=== PATIENT | female | born 1985 | race Caucasian/White ===

== ENCOUNTER 2021-08-26 17:24 | Inpatient (IN) | payer BC, SELFPAY ==
--- NOTE | ~2021-08-26 | CT_ITS ---
EXAMINATION: CT ABDOMEN AND PELVIS WITH CONTRAST CLINICAL INFORMATION: 35-year-old female with left lower quadrant pain COMPARISON: None TECHNIQUE: Multidetector volumetric images were obtained from the superior aspect of the liver through the pubic symphysis following administration 85 mL of Omnipaque 350 intravenous contrast. Sagittal and coronal reformatted images were obtained on the technologist's workstation. This CT examination was performed using dose optimization techniques as appropriate, variously including the following: *Automated exposure control *Adjustment of mA and/or kV according to patient size (this includes techniques or standardized protocols for targeted exams where dose is matched to indication/reason for exam; i.e. extremities or head) *Use of iterative reconstruction technique DLP: 1038 mGy-cm FINDINGS: Visualized lung bases are well aerated. The liver demonstrates normal size, contour and attenuation. The gallbladder is normal in appearance. The pancreas, spleen and adrenal glands are unremarkable. Striated nephrogram of the left kidney with mild left-sided perinephric stranding. There is mild fullness of the left-sided collecting system without overt hydronephrosis. No renal calculi appreciated on today's contrast enhanced imaging. The right kidney is grossly unremarkable without hydronephrosis. Normal caliber loops of small and large bowel. Mild colonic stool burden within the mid to distal colon. Fluid is noted within the cecum and ascending colon. Normal caliber abdominal aorta. No gross retroperitoneal lymphadenopathy. The bladder is decompressed and therefore not accurately evaluated. Unremarkable CT appearance of the uterus. 1.8 cm dominant follicle versus cyst of the left adnexa. Trace free pelvic fluid is likely physiologic. No gross inguinal lymphadenopathy bilaterally. No acute osseous abnormality. CT/CT abdomen pelvis w con IMPRESSION: CT findings most suggestive of pyelonephritis of the left kidney. Correlation with urinary analysis recommended. Fleischner guidelines were followed.
[2021-08-26 17:59] VITALS: BP 121/87; PULSE 117; RESP 18; TEMP 36.6; O2SAT 98; BMI 43.9
--- NOTE | 2021-08-26 18:04 | ED.ABDPAIN ---
HPI - Abdominal Pain General Chief Complaint: Abdominal Pain <ADAM Zuluaga - Last Filed: 08/27/21 11:48> Stated Complaint: Abdominal pain <ADAM Zuluaga - Last Filed: 08/27/21 11:48> Time Seen by Provider: 08/26/21 17:59 <ADAM Zuluaga - Last Filed: 08/27/21 11:48> Related Data Home Medications: Home Medications Medication Instructions Recorded Confirmed clonazepam 1 mg tablet 1 tab PO DAILY MDD anxiety 08/26/21 08/26/21 dextroamphetamine-amphetamine 10 1 tab PO BID 08/26/21 08/26/21 mg tablet dextroamphetamine-amphetamine ER 1 cap PO QAM 08/26/21 08/26/21 20 mg 24hr capsule,extend release hydroxychloroquine 200 mg tablet 2 tab PO DAILY 08/26/21 08/26/21 lisinopril 10 mg tablet 1 tab PO DAILY 08/26/21 08/26/21 medroxyprogesterone 150 mg/mL 1 ml IM [id number] 08/26/21 08/26/21 intramuscular suspension nabumetone 500 mg tablet 1 tab PO BID 08/26/21 08/26/21 omeprazole 20 mg capsule,delayed 1 cap PO DAILY 08/26/21 08/26/21 release paroxetine HCl 30 mg tablet 45 mg PO DAILY 08/26/21 08/26/21 <ADAM Zuluaga - Last Filed: 08/27/21 11:48> Allergies/Adverse Reactions: Allergies Allergy/AdvReac Type Severity Reaction Status Date / Time acetaminophen [From Percocet] Allergy Itching Verified 08/27/21 08:13 oxycodone Allergy Itching Verified 08/27/21 08:13 <ADAM Zuluaga - Last Filed: 08/27/21 11:48> Physical Exam Vital Signs: Vital Signs: Last Vital Signs Temp 97.8 F 08/27/21 11:12 Pulse 95 08/27/21 11:12 Resp 20 08/27/21 11:12 BP 113/69 08/27/21 11:12 Pulse Ox 99 08/27/21 11:12 BMI result Body Mass Index 43.9 <ADAM Zuluaga - Last Filed: 08/27/21 11:48> Vital Signs: Last Vital Signs Temp 97.8 F 08/27/21 11:12 Pulse 95 08/27/21 11:12 Resp 20 08/27/21 11:12 BP 113/69 08/27/21 11:12 Pulse Ox 99 08/27/21 11:12 BMI result Body Mass Index 43.9 <Rosio Chandra MD - Last Filed: 08/27/21 02:14> Course Course Course Narrative: Patient presents to the ED for left lower quadrant abdominal pain with nausea, chills, and sweating. patient states no fever. Patient states vaccinated. Patient is on depo shot. Patient is A0x3. Left lower quadrant tenderness. Negative for any gaurding,rigidity, or peritoneal signs of abdomen. Due to patient being tachycardic, diaphoretic, and tendernss of LLq, Charge nurse Tommy was informed of patient's condition and states he will bring patient to the Main ED the next availabe bed. Rapid medical screening done. <ADAM Zuluaga - Last Filed: 08/27/21 11:48> MDM - Abdominal Pain Lab Data Result diagrams: : 08/27/21 06:24 08/27/21 06:24 <ADAM Zuluaga - Last Filed: 08/27/21 11:48> Labs: Lab Results 08/26/21 08/26/21 08/26/21 Range/Units 18:03 18:32 18:32 WBC 20.3 H (4.8-10.8) X10*3/uL RBC 4.58 (4.20-5.50) X10*6/uL Hgb 13.2 (12.0-16.0) g/dl Hct 39.4 (37.0-47.0) % MCV 86.0 (80.0-98.0) fL MCH 28.8 (27.0-33.0) pg MCHC 33.5 (31.0-35.0) g/dl RDW 13.4 (11.0-16.0) % Plt Count 314 (160-400) X10*3/uL MPV 8.9 L (9.4-12.3) fL Immature Gran % (Auto) 1.4 H (0.0-0.4) % Neut % (Auto) 81.0 H (45-73) % Lymph % (Auto) 7.7 L (20-40) % [place] % (Auto) 9.5 (2-11) % Eos % (Auto) 0.1 (0-4) % Baso % (Auto) 0.3 (0-2) % Lymph # (Auto) 1.6 (1.2-4.9) X10*3/uL [place] # (Auto) 1.9 H (0.1-1.2) X10*3/uL Eos # (Auto) 0.0 (0.0-0.4) X10*3/uL Baso # (Auto) 0.1 (0.0-0.2) X10*3/uL Abs Immat Gran (auto) 0.28 H (0.00-0.03) X10*3/uL Absolute Neuts (auto) 16.4 H (2.0-8.3) x10*3/uL Absolute Nucleated RBC 0.000 (0.0-0.012) X10*3/uL Nucleated RBC % (auto) 0.0 (0.0-0.2) /100WBC Smear Tech's Comments VERIFIED PT (9.9-13.0) SEC INR (0.9-1.1) APTT (24.1-38.0) SEC Sodium 133 L (135-145) mmol/L Potassium 4.1 (3.3-5.1) mmol/L Chloride 96 (96-108) mmol/L Carbon Dioxide 26 (22-29) mmol/L Anion Gap 15 (12-20) BUN 13 (9-16) mg/dL Creatinine 0.81 (0.5-1.4) mg/dL Estim Creat Clear Calc 114.8 Estimated GFR > 60 POC Glucose 111 (60-115) mg/dL Random Glucose 108 (60-115) mg/dL Calcium 9.9 (8.4-10.2) mg/dL Total Bilirubin 0.5 (0.0-1.0) mg/dL Direct Bilirubin 0.3 (0.0-0.5) mg/dL AST 25 (5-31) U/L ALT 31 (0-31) U/L Alkaline Phosphatase 83 (39-117) U/L Total Protein 7.5 (6.5-8.0) g/dL Albumin 4.4 (3.5-5.0) g/dL Lipase 12 (8-78) U/L Beta HCG, Quant < 2 mIU/mL Urine Color Urine Appearance Urine pH (5.0-8.0) Ur Specific [place] (1.005-1.025) Urine Protein (NEG-TRACE) MG/DL Urine Glucose (UA) (NEG) MG/DL Urine Ketones (NEG) MG/DL Urine Blood (NEG) Urine Nitrite (NEG) Ur Leukocyte Esterase (NEG) Urine RBC (0) /HPF Urine WBC (0-4) /HPF Ur Squamous Epith Cells /LPF Urine Bacteria /LPF Influenza Type A (PCR) (Negative) Influenza Type B (PCR) (Negative) RSV RNA Qual (PCR) (Negative) SARS-CoV-2 RNA (RT-PCR) (Negative) 08/26/21 08/26/21 08/26/21 Range/Units 18:32 18:32 19:55 WBC (4.8-10.8) X10*3/uL RBC (4.20-5.50) X10*6/uL Hgb (12.0-16.0) g/dl Hct (37.0-47.0) % MCV (80.0-98.0) fL MCH (27.0-33.0) pg MCHC (31.0-35.0) g/dl RDW (11.0-16.0) % Plt Count (160-400) X10*3/uL MPV (9.4-12.3) fL Immature Gran % (Auto) (0.0-0.4) % Neut % (Auto) (45-73) % Lymph % (Auto) (20-40) % [place] % (Auto) (2-11) % Eos % (Auto) (0-4) % Baso % (Auto) (0-2) % Lymph # (Auto) (1.2-4.9) X10*3/uL [place] # (Auto) (0.1-1.2) X10*3/uL Eos # (Auto) (0.0-0.4) X10*3/uL Baso # (Auto) (0.0-0.2) X10*3/uL Abs Immat Gran (auto) (0.00-0.03) X10*3/uL Absolute Neuts (auto) (2.0-8.3) x10*3/uL Absolute Nucleated RBC (0.0-0.012) X10*3/uL Nucleated RBC % (auto) (0.0-0.2) /100WBC Smear Tech's Comments PT 13.7 H (9.9-13.0) SEC INR 1.2 H (0.9-1.1) APTT 35.1 (24.1-38.0) SEC Sodium (135-145) mmol/L Potassium (3.3-5.1) mmol/L Chloride (96-108) mmol/L Carbon Dioxide (22-29) mmol/L Anion Gap (12-20) BUN (9-16) mg/dL Creatinine (0.5-1.4) mg/dL Estim Creat Clear Calc Estimated GFR POC Glucose (60-115) mg/dL Random Glucose (60-115) mg/dL Calcium (8.4-10.2) mg/dL Total Bilirubin (0.0-1.0) mg/dL Direct Bilirubin (0.0-0.5) mg/dL AST (5-31) U/L ALT (0-31) U/L Alkaline Phosphatase (39-117) U/L Total Protein (6.5-8.0) g/dL Albumin (3.5-5.0) g/dL Lipase (8-78) U/L Beta HCG, Quant mIU/mL Urine Color YELLOW Urine Appearance HAZY Urine pH 5.5 (5.0-8.0) Ur Specific [place] >= 1.030 H (1.005-1.025) Urine Protein 2+ H (NEG-TRACE) MG/DL Urine Glucose (UA) NEG (NEG) MG/DL Urine Ketones 15 (NEG) MG/DL Urine Blood 1+ H (NEG) Urine Nitrite NEG (NEG) Ur Leukocyte Esterase 3+ H (NEG) Urine RBC 1-4 (0) /HPF Urine WBC 15-29 H (0-4) /HPF Ur Squamous Epith Cells 1+ /LPF Urine Bacteria 1+ /LPF Influenza Type A (PCR) NEGATIVE (Negative) Influenza Type B (PCR) NEGATIVE (Negative) RSV RNA Qual (PCR) NEGATIVE (Negative) SARS-CoV-2 RNA (RT-PCR) NEGATIVE (Negative) <ADAM Zuluaga - Last Filed: 08/27/21 11:48> Lab Results 08/26/21 08/26/21 08/26/21 Range/Units 18:03 18:32 18:32 WBC 20.3 H (4.8-10.8) X10*3/uL RBC 4.58 (4.20-5.50) X10*6/uL Hgb 13.2 (12.0-16.0) g/dl Hct 39.4 (37.0-47.0) % MCV 86.0 (80.0-98.0) fL MCH 28.8 (27.0-33.0) pg MCHC 33.5 (31.0-35.0) g/dl RDW 13.4 (11.0-16.0) % Plt Count 314 (160-400) X10*3/uL MPV 8.9 L (9.4-12.3) fL Immature Gran % (Auto) 1.4 H (0.0-0.4) % Neut % (Auto) 81.0 H (45-73) % Lymph % (Auto) 7.7 L (20-40) % [place] % (Auto) 9.5 (2-11) % Eos % (Auto) 0.1 (0-4) % Baso % (Auto) 0.3 (0-2) % Lymph # (Auto) 1.6 (1.2-4.9) X10*3/uL [place] # (Auto) 1.9 H (0.1-1.2) X10*3/uL Eos # (Auto) 0.0 (0.0-0.4) X10*3/uL Baso # (Auto) 0.1 (0.0-0.2) X10*3/uL Abs Immat Gran (auto) 0.28 H (0.00-0.03) X10*3/uL Absolute Neuts (auto) 16.4 H (2.0-8.3) x10*3/uL Absolute Nucleated RBC 0.000 (0.0-0.012) X10*3/uL Nucleated RBC % (auto) 0.0 (0.0-0.2) /100WBC Smear Tech's Comments VERIFIED PT (9.9-13.0) SEC INR (0.9-1.1) APTT (24.1-38.0) SEC Sodium 133 L (135-145) mmol/L Potassium 4.1 (3.3-5.1) mmol/L Chloride 96 (96-108) mmol/L Carbon Dioxide 26 (22-29) mmol/L Anion Gap 15 (12-20) BUN 13 (9-16) mg/dL Creatinine 0.81 (0.5-1.4) mg/dL Estim Creat Clear Calc 114.8 Estimated GFR > 60 POC Glucose 111 (60-115) mg/dL Random Glucose 108 (60-115) mg/dL Calcium 9.9 (8.4-10.2) mg/dL Total Bilirubin 0.5 (0.0-1.0) mg/dL Direct Bilirubin 0.3 (0.0-0.5) mg/dL AST 25 (5-31) U/L ALT 31 (0-31) U/L Alkaline Phosphatase 83 (39-117) U/L Total Protein 7.5 (6.5-8.0) g/dL Albumin 4.4 (3.5-5.0) g/dL Lipase 12 (8-78) U/L Beta HCG, Quant < 2 mIU/mL Urine Color Urine Appearance Urine pH (5.0-8.0) Ur Specific [place] (1.005-1.025) Urine Protein (NEG-TRACE) MG/DL Urine Glucose (UA) (NEG) MG/DL Urine Ketones (NEG) MG/DL Urine Blood (NEG) Urine Nitrite (NEG) Ur Leukocyte Esterase (NEG) Urine RBC (0) /HPF Urine WBC (0-4) /HPF Ur Squamous Epith Cells /LPF Urine Bacteria /LPF Influenza Type A (PCR) (Negative) Influenza Type B (PCR) (Negative) RSV RNA Qual (PCR) (Negative) SARS-CoV-2 RNA (RT-PCR) (Negative) 08/26/21 08/26/21 08/26/21 Range/Units 18:32 18:32 19:55 WBC (4.8-10.8) X10*3/uL RBC (4.20-5.50) X10*6/uL Hgb (12.0-16.0) g/dl Hct (37.0-47.0) % MCV (80.0-98.0) fL MCH (27.0-33.0) pg MCHC (31.0-35.0) g/dl RDW (11.0-16.0) % Plt Count (160-400) X10*3/uL MPV (9.4-12.3) fL Immature Gran % (Auto) (0.0-0.4) % Neut % (Auto) (45-73) % Lymph % (Auto) (20-40) % [place] % (Auto) (2-11) % Eos % (Auto) (0-4) % Baso % (Auto) (0-2) % Lymph # (Auto) (1.2-4.9) X10*3/uL [place] # (Auto) (0.1-1.2) X10*3/uL Eos # (Auto) (0.0-0.4) X10*3/uL Baso # (Auto) (0.0-0.2) X10*3/uL Abs Immat Gran (auto) (0.00-0.03) X10*3/uL Absolute Neuts (auto) (2.0-8.3) x10*3/uL Absolute Nucleated RBC (0.0-0.012) X10*3/uL Nucleated RBC % (auto) (0.0-0.2) /100WBC Smear Tech's Comments PT 13.7 H (9.9-13.0) SEC INR 1.2 H (0.9-1.1) APTT 35.1 (24.1-38.0) SEC Sodium (135-145) mmol/L Potassium (3.3-5.1) mmol/L Chloride (96-108) mmol/L Carbon Dioxide (22-29) mmol/L Anion Gap (12-20) BUN (9-16) mg/dL Creatinine (0.5-1.4) mg/dL Estim Creat Clear Calc Estimated GFR POC Glucose (60-115) mg/dL Random Glucose (60-115) mg/dL Calcium (8.4-10.2) mg/dL Total Bilirubin (0.0-1.0) mg/dL Direct Bilirubin (0.0-0.5) mg/dL AST (5-31) U/L ALT (0-31) U/L Alkaline Phosphatase (39-117) U/L Total Protein (6.5-8.0) g/dL Albumin (3.5-5.0) g/dL Lipase (8-78) U/L Beta HCG, Quant mIU/mL Urine Color YELLOW Urine Appearance HAZY Urine pH 5.5 (5.0-8.0) Ur Specific [place] >= 1.030 H (1.005-1.025) Urine Protein 2+ H (NEG-TRACE) MG/DL Urine Glucose (UA) NEG (NEG) MG/DL Urine Ketones 15 (NEG) MG/DL Urine Blood 1+ H (NEG) Urine Nitrite NEG (NEG) Ur Leukocyte Esterase 3+ H (NEG) Urine RBC 1-4 (0) /HPF Urine WBC 15-29 H (0-4) /HPF Ur Squamous Epith Cells 1+ /LPF Urine Bacteria 1+ /LPF Influenza Type A (PCR) NEGATIVE (Negative) Influenza Type B (PCR) NEGATIVE (Negative) RSV RNA Qual (PCR) NEGATIVE (Negative) SARS-CoV-2 RNA (RT-PCR) NEGATIVE (Negative) <Rosio Chandra MD - Last Filed: 08/27/21 02:14> Discharge Plan Discharge Clinical Impression: Pyelonephritis <ADAM Zuluaga - Last Filed: 08/27/21 11:48> Patient Disposition: Admitted As Inpatient <ADAM Zuluaga - Last Filed: 08/27/21 11:48> Interventions: Admission Worksheet (ED) Last Done: 08/27/21 09:04 <ADAM Zuluaga - Last Filed: 08/27/21 11:48> Discharge Date/Time: 08/27/21 09:04 <ADAM Zuluaga - Last Filed: 08/27/21 11:48> FORMERLY [facility], [facility]–1983 Past Medical History Medical History: Medical History (Updated 08/27/21 @ 06:29 by Los Harrison MD) ADD (attention deficit disorder) Depression with anxiety Hypertension <ADAM Zuluaga - Last Filed: 08/27/21 11:48> Surgical History: Surgical History (Updated 08/27/21 @ 06:30 by Los Harrison MD) History of ankle surgery <ADAM Zuluaga - Last Filed: 08/27/21 11:48> Family History Family History: Family History (Updated 08/27/21 @ 06:30 by Los Harrison MD) Mother Hypertension Diabetes Father Skin cancer <ADAM Zuluaga - Last Filed: 08/27/21 11:48> Social History Social History: Social History (Updated 08/27/21 @ 06:30 by Los Harrison MD) Household Members: Spouse Housing: Apartment Do you presently have visiting nurse or other home services: No Alcohol intake: current Alcohol intake frequency: a few times a week Patient Tobacco Use Status: Never used Tobacco Substance Use Type: Other <ADAM Zuluaga - Last Filed: 08/27/21 11:48>
[2021-08-26 18:17] LABS: Glucose, Whole Blood 111 mg/dL (60-115)
--- NOTE | 2021-08-26 18:32 | ED_ITS ---
HPI - Abdominal Pain General Chief Complaint: Abdominal Pain Stated Complaint: Abdominal pain Time Seen by Provider: 08/26/21 17:59 Source: patient Mode of arrival: ambulatory Limitations: no limitations History of Present Illness HPI narrative: Patient comes to the emergency room complaining of left lower quadrant pain. Patient states that the pain started approximately 4 days ago. Patient states it started out constipation. Patient took MiraLax, had a successful bowel movement. However, the patient never resolved. Patient states the pain is constant, at times it becomes very intense / and then it al leviates but it is still present. Patient complaining of chills and episodes of profuse sweating. Patient denies URI symptoms, no chest pain, no shortness of breath. Denies UTI symptoms Related Data Home Medications Medication Instructions Recorded Confirmed dextroamphetamine-amphetamine 10 1 tab PO BID 08/26/21 mg tablet dextroamphetamine-amphetamine ER 1 cap PO QAM 08/26/21 20 mg 24hr capsule,extend release hydroxychloroquine 200 mg tablet 1 tab PO BID 08/26/21 lisinopril 10 mg tablet 1 tab PO DAILY 08/26/21 medroxyprogesterone 150 mg/mL 1 ml IM [id number] 08/26/21 intramuscular suspension nabumetone 750 mg tablet 1 tab PO BID 08/26/21 omeprazole 20 mg capsule,delayed 1 cap PO DAILY 08/26/21 release paroxetine HCl 30 mg tablet 45 tab PO DAILY 08/26/21 Allergies Allergy/AdvReac Type Severity Reaction Status Date / Time No Known Allergies Allergy Verified 08/26/21 17:59 Review of Systems Review of Systems Constitutional : No Weight loss, No Fever, complaining of Chills, No Night Sweats, No Fatigue, No Malaise ENT/Mouth : No Hearing loss, No Ear Pain, No Nasal Congestion, No Sinus Pain, No Hoarseness, No sore throat, No Rhinorrhea, No Swallowing Difficulty Eyes: No Eye Pain, No Swelling, No Redness, No Foreign Body, No Discharge, No Vision Changes Cardiovascular : No Chest Pain, No SOB, No Dyspnea on Exertion, No Orthopnea, No Edema, No Palpitations Respiratory : No Cough, No Sputum, No Wheezing, No Smoke Exposure, No Dyspnea Gastrointestinal : No Nausea, No Vomiting, No Diarrhea, complaining of constipation and left lower quadrant pain, constant, nonradiating. Genitourinary : no irregular bleeding, No Dysuria, No Urinary Frequency, No Hematuria, No Urinary Incontinence, No Urgency, No Flank Pain, No Urinary Flow Changes, No Hesitancy Musculoskeletal : No joint pain, No Myalgias, No Joint Swelling Skin : No Skin Lesions, No rash Neuro : No Weakness, No Numbness, No Paresthesias, No Loss of Consciousness, No Dizziness, No Headache Psych : No Anxiety/Panic, No Depression, No SI/HI/AH/VH, No Social Issues, Heme/Lymph: No Bruising, No Bleeding,No Lymphadenopathy Endocrine : No Polyuria, No Polydipsia, No Temperature Intolerance Physical Exam Vital Signs: Vital Signs: Last Vital Signs Temp 100.7 F H 08/26/21 18:42 Pulse 100 08/26/21 18:42 Resp 18 08/26/21 18:42 BP 139/68 08/26/21 18:42 Pulse Ox 100 08/26/21 18:42 BMI result Body Mass Index 43.9 Const: Other: Appearance: Alert. Oriented X3. No acute distress. Eyes: Pupils equal, round and reactive to light. ENT: Pharynx normal. Neck: Normal inspection. Neck supple. No lymph nodes noted. No crepitus CVS: Normal heart rate and rhythm. Pulses normal. Normal S1 and S2 Respiratory: No respiratory distress. Breath sounds normal. No Wheezing. No rales Abdomen: Soft , tenderness to palpation in left upper and left lower quadrant. No rebound, no rigidity, no guarding. No distention. Skin: Skin warm and clammy. Normal skin color. Normal skin turgor. Extremities: No lower extremity edema. No lower extremity edema. No Lacerations. No Rash Neuro: Oriented X 3. No motor deficit. No sensory deficit. Moving all extermities. No slurred speech. Course Course Course Narrative: CT scan resolved at 20:20 and urinalysis resolved at 20:26, pyelonephritis suspected at this time. Patient denies dysuria or flank pain. Lactic acid and blood cultures pending, patient being treated with ceftriaxone and IV fluids being given based on an ideal weight of 59 kg. Patient is obese. Speaking to the patient again, patient denies any flank pain , dysuria or hematuria. I discussed the patient with Dr. Harrison, patient being admitted. MDM - Abdominal Pain Lab Data Result diagrams: 08/26/21 18:32 08/26/21 18:32 Labs: Lab Results 08/26/21 08/26/21 08/26/21 Range/Units 18:03 18:32 18:32 WBC 20.3 H (4.8-10.8) X10*3/uL RBC 4.58 (4.20-5.50) X10*6/uL Hgb 13.2 (12.0-16.0) g/dl Hct 39.4 (37.0-47.0) % MCV 86.0 (80.0-98.0) fL MCH 28.8 (27.0-33.0) pg MCHC 33.5 (31.0-35.0) g/dl RDW 13.4 (11.0-16.0) % Plt Count 314 (160-400) X10*3/uL MPV 8.9 L (9.4-12.3) fL Immature Gran % (Auto) 1.4 H (0.0-0.4) % Neut % (Auto) 81.0 H (45-73) % Lymph % (Auto) 7.7 L (20-40) % [place] % (Auto) 9.5 (2-11) % Eos % (Auto) 0.1 (0-4) % Baso % (Auto) 0.3 (0-2) % Lymph # (Auto) 1.6 (1.2-4.9) X10*3/uL [place] # (Auto) 1.9 H (0.1-1.2) X10*3/uL Eos # (Auto) 0.0 (0.0-0.4) X10*3/uL Baso # (Auto) 0.1 (0.0-0.2) X10*3/uL Abs Immat Gran (auto) 0.28 H (0.00-0.03) X10*3/uL Absolute Neuts (auto) 16.4 H (2.0-8.3) x10*3/uL Absolute Nucleated RBC 0.000 (0.0-0.012) X10*3/uL Nucleated RBC % (auto) 0.0 (0.0-0.2) /100WBC Smear Tech's Comments VERIFIED PT (9.9-13.0) SEC INR (0.9-1.1) APTT (24.1-38.0) SEC Sodium 133 L (135-145) mmol/L Potassium 4.1 (3.3-5.1) mmol/L Chloride 96 (96-108) mmol/L Carbon Dioxide 26 (22-29) mmol/L Anion Gap 15 (12-20) BUN 13 (9-16) mg/dL Creatinine 0.81 (0.5-1.4) mg/dL Estim Creat Clear Calc 114.8 Estimated GFR > 60 POC Glucose 111 (60-115) mg/dL Random Glucose 108 (60-115) mg/dL Calcium 9.9 (8.4-10.2) mg/dL Total Bilirubin 0.5 (0.0-1.0) mg/dL Direct Bilirubin 0.3 (0.0-0.5) mg/dL AST 25 (5-31) U/L ALT 31 (0-31) U/L Alkaline Phosphatase 83 (39-117) U/L Total Protein 7.5 (6.5-8.0) g/dL Albumin 4.4 (3.5-5.0) g/dL Lipase 12 (8-78) U/L Beta HCG, Quant < 2 mIU/mL Urine Color Urine Appearance Urine pH (5.0-8.0) Ur Specific [place] (1.005-1.025) Urine Protein (NEG-TRACE) MG/DL Urine Glucose (UA) (NEG) MG/DL Urine Ketones (NEG) MG/DL Urine Blood (NEG) Urine Nitrite (NEG) Ur Leukocyte Esterase (NEG) Influenza Type A (PCR) (Negative) Influenza Type B (PCR) (Negative) RSV RNA Qual (PCR) (Negative) SARS-CoV-2 RNA (RT-PCR) (Negative) 08/26/21 08/26/21 08/26/21 Range/Units 18:32 18:32 19:55 WBC (4.8-10.8) X10*3/uL RBC (4.20-5.50) X10*6/uL Hgb (12.0-16.0) g/dl Hct (37.0-47.0) % MCV (80.0-98.0) fL MCH (27.0-33.0) pg MCHC (31.0-35.0) g/dl RDW (11.0-16.0) % Plt Count (160-400) X10*3/uL MPV (9.4-12.3) fL Immature Gran % (Auto) (0.0-0.4) % Neut % (Auto) (45-73) % Lymph % (Auto) (20-40) % [place] % (Auto) (2-11) % Eos % (Auto) (0-4) % Baso % (Auto) (0-2) % Lymph # (Auto) (1.2-4.9) X10*3/uL [place] # (Auto) (0.1-1.2) X10*3/uL Eos # (Auto) (0.0-0.4) X10*3/uL Baso # (Auto) (0.0-0.2) X10*3/uL Abs Immat Gran (auto) (0.00-0.03) X10*3/uL Absolute Neuts (auto) (2.0-8.3) x10*3/uL Absolute Nucleated RBC (0.0-0.012) X10*3/uL Nucleated RBC % (auto) (0.0-0.2) /100WBC Smear Tech's Comments PT 13.7 H (9.9-13.0) SEC INR 1.2 H (0.9-1.1) APTT 35.1 (24.1-38.0) SEC Sodium (135-145) mmol/L Potassium (3.3-5.1) mmol/L Chloride (96-108) mmol/L Carbon Dioxide (22-29) mmol/L Anion Gap (12-20) BUN (9-16) mg/dL Creatinine (0.5-1.4) mg/dL Estim Creat Clear Calc Estimated GFR POC Glucose (60-115) mg/dL Random Glucose (60-115) mg/dL Calcium (8.4-10.2) mg/dL Total Bilirubin (0.0-1.0) mg/dL Direct Bilirubin (0.0-0.5) mg/dL AST (5-31) U/L ALT (0-31) U/L Alkaline Phosphatase (39-117) U/L Total Protein (6.5-8.0) g/dL Albumin (3.5-5.0) g/dL Lipase (8-78) U/L Beta HCG, Quant mIU/mL Urine Color YELLOW Urine Appearance HAZY Urine pH 5.5 (5.0-8.0) Ur Specific [place] >= 1.030 H (1.005-1.025) Urine Protein 2+ H (NEG-TRACE) MG/DL Urine Glucose (UA) NEG (NEG) MG/DL Urine Ketones 15 (NEG) MG/DL Urine Blood 1+ H (NEG) Urine Nitrite NEG (NEG) Ur Leukocyte Esterase 3+ H (NEG) Influenza Type A (PCR) NEGATIVE (Negative) Influenza Type B (PCR) NEGATIVE (Negative) RSV RNA Qual (PCR) NEGATIVE (Negative) SARS-CoV-2 RNA (RT-PCR) NEGATIVE (Negative) Discharge Plan Discharge Clinical Impression: Pyelonephritis Patient Disposition: Admitted As Inpatient [facility] Social History Social History Advance Directives: No Advance Directives Information Provided: Yes
[2021-08-26] MEDS: 0.9 % Sodium Chloride 1,000 ML 999 ML IVCONT ×2 (18:35→20:40)
[2021-08-26] MEDS: Morphine Sulfate 4 MG/ML CARTRIDGE IVPUSH (18:38)
[2021-08-26] MEDS: ondansetron HCL 4 MG/2 ML VIAL IVPUSH (18:39)
[2021-08-26 18:42] VITALS: BP 139/68; PULSE 100; RESP 18; TEMP 38.2; O2SAT 100
[2021-08-26 18:43] LABS: Basophils Absolute Auto 0.1 X10*3/uL (0.0-0.2); Basophils Percent Auto 0.3 % (0-2); Eosinophils Percent Auto 0.1 % (0-4); Hematocrit 39.4 % (37.0-47.0); Hemoglobin 13.2 g/dl (12.0-16.0); Imm Gran Abs Auto 0.28 X10*3/uL (0.00-0.03); Imm Gran Pct Auto 1.4 % (0.0-0.4); Lymphocytes Absolute Auto 1.6 X10*3/uL (1.2-4.9); Lymphocytes Percent Auto 7.7 % (20-40); MANUAL DIFF FLAG SCAN; Mean Corpuscular HGB Conc 33.5 g/dl (31.0-35.0); Mean Corpuscular Hemoglobin 28.8 pg (27.0-33.0); Mean Platelet Volume 8.9 fL (9.4-12.3); Monocytes Absolute Auto 1.9 X10*3/uL (0.1-1.2); Monocytes Percent Auto 9.5 % (2-11); Neutrophils Absolute Auto 16.4 x10*3/uL (2.0-8.3); Platelet Count 314 X10*3/uL (160-400); Red Blood Count 4.58 X10*6/uL (4.20-5.50); Red Cell Distribution Width 13.4 % (11.0-16.0); SCAN SMEAR FLAG 1; White Blood Count 20.3 X10*3/uL (4.8-10.8)
[2021-08-26 18:47] LABS: INTERNATIONAL NORM RATIO 1.2 (0.9-1.1); Prothrombin Time 13.7 SEC (9.9-13.0)
[2021-08-26 18:50] LABS: Partial Thromboplastin Time 35.1 SEC (24.1-38.0)
[2021-08-26 19:00] LABS: SLIDE REVIEW VERIFIED
[2021-08-26 19:01] LABS: Alanine Aminotransferase 31 U/L (0-31); Albumin Level 4.4 g/dL (3.5-5.0); Alkaline Phosphatase 83 U/L (39-117); Anion Gap 15 (12-20); Aspartate Amino Transferase 25 U/L (5-31); Bilirubin Direct 0.3 mg/dL (0.0-0.5); Bilirubin Total 0.5 mg/dL (0.0-1.0); Blood Urea Nitrogen 13 mg/dL (9-16); Calcium 9.9 mg/dL (8.4-10.2); Carbon Dioxide 26 mmol/L (22-29); Chloride 96 mmol/L (96-108); Creatinine Clr Calc Pharmacy 114.8; Estimated Glomerular Filt Rate > 60; Glucose Random 108 mg/dL (60-115); Lipase 12 U/L (8-78); Potassium 4.1 mmol/L (3.3-5.1); Sodium 133 mmol/L (135-145); Total Protein 7.5 g/dL (6.5-8.0)
[2021-08-26 19:06] LABS: HCG Quantitative < 2 mIU/mL
[2021-08-26] MEDS: iohexoL 350 MG/ML 100 ML INFUS..BTL IV (19:33)
[2021-08-26 19:48] LABS: Influenza A PCR NEGATIVE (Negative); Influenza B PCR NEGATIVE (Negative); Resp Syncy Virus RNA Qual PCR NEGATIVE (Negative); SARS COV2 PCR INHOUSE NEGATIVE (Negative)
[2021-08-26 20:17] LABS: Appearance Urine HAZY; Color Urine YELLOW; Glucose Urine UA NEG (NEG); Leukocyte Esterase Urine 3+ (NEG); Nitrite Urine NEG (NEG); PH 5.5 (5.0-8.0); Specific Gravity - Urine >= 1.030 (1.005-1.025); UACC Culture Trigger YES; Urine Blood 1+ (NEG); Urine Ketones 15 MG/DL (NEG); Urine Protein 2+ MG/DL (NEG-TRACE)
[2021-08-26] MEDS: cefTRIAXone sodium 1 GM in 0.9 % Sodium Chloride 50 ML IV (20:37)
[2021-08-26 20:41] VITALS: BP 105/65; PULSE 98; RESP 18; TEMP 37.1; O2SAT 98
[2021-08-26 20:46] LABS: Bacteria Urine 1+ /LPF; Squamous Epithelial Cell Urine 1+ /LPF
--- NOTE | 2021-08-26 21:24 | PHA.MEDREC ---
Pharmacy Consult ? Medication Reconciliation Pharmacy has completed the medication reconciliation.
--- NOTE | 2021-08-26 21:51 | P.HPHOSP_ITS ---
History of Present Illness Date of Service: 08/26/21 Chief Complaint: abd pain This is a 35-year-old female with past medical history of hypertension, rheumatoid arthritis, anxiety and depression, ADD, presents to the hospital with complaints of left lower quadrant pain, chills, as well as diaphoresis for the past few days. Patient feels feverish although reports that she never has a temperature, she has been diaphoretic, she denies any urinary symptoms including no dysuria, frequency or urgency but reports left lower quadrant pain that is radiating to the left flank. She has no chest pain, no nausea or vomiting, no diarrhea constipation, no lower extremity edema. No numbness tingling, no weakness and no headache. On arrival to the ED patient had a temperature of 100.7?, heart rate of 117, respiratory rate of 18, blood pressure 121/87, satting 98% on room air Labs are significant for WBC count of 20.3, PT of 13.7, in her home 0.2, sodium of 133, UA that is positive for leukocyte Estrace and WBC, CT abdomen shows pyelonephritis of the left kidney. Patient will be admitted for the managed Review of Systems Review of Systems: Yes all other systems are reviewed and are negative PMFSH Medical History (Updated 08/27/21 @ 06:29 by Los Harrison MD) ADD (attention deficit disorder) Depression with anxiety Hypertension Family History (Updated 08/27/21 @ 06:30 by Los Harrison MD) Mother Hypertension Diabetes Father Skin cancer Surgical History (Updated 08/27/21 @ 06:30 by Los Harrison MD) History of ankle surgery Social History (Updated 08/27/21 @ 06:30 by Los Harrison MD) Alcohol intake: current Patient Tobacco Use Status: Never used Tobacco Use of substances other than those prescribed or required for medical reasons: No Advance Directives: No Advance Directives Information Provided: Yes Meds Allergies Allergy/AdvReac Type Severity Reaction Status Date / Time No Known Allergies Allergy Verified 08/26/21 17:59 Active Medications: Current Medications Acetaminophen (Acetaminophen 325 Mg Tablet) 650 mg PO Q6H PRN PRN Reason: Pain, Mild (Pain Scale 1-3) Docusate Sodium (Docusate Sodium 100 Mg Capsule) 100 mg PO DAILY PRN PRN Reason: Constipation Enoxaparin Sodium (Enoxaparin Sodium 40 Mg/0.4 Ml Syringe) 40 mg SUBCUT Q24H [facility] Ceftriaxone Sodium 1 gm/ (Sodium Chloride) 50 mls @ 100 mls/hr IV Q24H [facility] Ondansetron HCl (Ondansetron Hcl 4 Mg/2 Ml Vial) 4 mg IVPUSH Q8H PRN PRN Reason: Nausea and Vomiting Oxycodone HCl (Oxycodone Hcl Immed Release 5 Mg Tablet) 5 mg PO Q6H PRN PRN Reason: Pain, Severe (Pain Scale 7-10) Pharmacy Consult (Consult Rx Perform Med Rec) 1 each MISCELLANE ONCE PRN PRN Reason: Consult order Sodium Chloride (0.9 % Sodium Chloride Flush 3 Ml Syringe) 3 ml IVFLUSH QSHIFT [facility] Home Medications Medication Instructions Recorded Confirmed Last Taken Type clonazepam 1 mg tablet 1 tab PO DAILY MDD anxiety 08/26/21 08/26/21 Unknown History dextroamphetamine-amphetamine 10 1 tab PO BID 08/26/21 08/26/21 08/26/21 History mg tablet dextroamphetamine-amphetamine ER 1 cap PO QAM 08/26/21 08/26/21 08/26/21 History 20 mg 24hr capsule,extend release hydroxychloroquine 200 mg tablet 2 tab PO DAILY 08/26/21 08/26/21 08/26/21 History lisinopril 10 mg tablet 1 tab PO DAILY 08/26/21 08/26/21 08/19/21 History medroxyprogesterone 150 mg/mL 1 ml IM [id number] 08/26/21 08/26/21 08/05/21 History intramuscular suspension nabumetone 500 mg tablet 1 tab PO BID 08/26/21 08/26/21 08/26/21 History omeprazole 20 mg capsule,delayed 1 cap PO DAILY 08/26/21 08/26/21 08/26/21 Histo ry release paroxetine HCl 30 mg tablet 45 mg PO DAILY 08/26/21 08/26/21 08/26/21 History Physical Exam Vital Signs and Narrative: Vital Signs: Last Vital Signs Temp 98.8 F 08/26/21 20:41 Pulse 98 08/26/21 20:41 Resp 18 08/26/21 20:41 BP 105/65 08/26/21 20:41 Pulse Ox 98 08/26/21 20:41 BMI result Body Mass Index 43.9 Const: General: cooperative and no acute distress O rientation/consciousness: patient oriented x3 Eyes: General: appearance normal, both eyes and all related structures Pu pils: Equal, round and reactive pupils present Resp: Effort & Inspection: normal respiratory effort Auscultation: clear to auscultation bilaterally Cardio: Rate: regular rate Rhythm: regular rhythm GI: Other: No rebound or guarding Palpation (GI): Soft to palpation Auscultation: normal bowel sounds : Other: Left CVA tenderness Skin: General skin exam: no rashes or lesions noted Neuro: General: patient oriented x3 Cranial nerves: Yes Equal, round and reactive pupils present Cognition (Neuro): normal cognition Extrem: General: Yes normal to inspection and Yes no pedal edema Results Labs CBC and Chem 7: 08/26/21 18:32 08/26/21 18:32 Labs: Laboratory Results - last 24 hr 08/26/21 08/26/21 08/26/21 18:03 18:32 18:32 MCV 86.0 MCH 28.8 MCHC 33.5 RDW 13.4 Plt Count 314 MPV 8.9 L Immature Gran % (Auto) 1.4 H Neut % (Auto) 81.0 H Lymph % (Auto) 7.7 L [place] % (Auto) 9.5 Eos % (Auto) 0.1 Baso % (Auto) 0.3 Lymph # (Auto) 1.6 [place] # (Auto) 1.9 H Eos # (Auto) 0.0 Baso # (Auto) 0.1 Abs Immat Gran (auto) 0.28 H Absolute Neuts (auto) 16.4 H Absolute Nucleated RBC 0.000 Nucleated RBC % (auto) 0.0 Smear Tech's Comments VERIFIED PT INR APTT Anion Gap 15 Estim Creat Clear Calc 114.8 Estimated GFR > 60 POC Glucose 111 Random Glucose 108 Calcium 9.9 Total Bilirubin 0.5 Direct Bilirubin 0.3 AST 25 ALT 31 Alkaline Phosphatase 83 Total Protein 7.5 Albumin 4.4 Lipase 12 Beta HCG, Quant < 2 Urine Color Urine Appearance Urine pH Ur Specific [place] Urine Protein Urine Glucose (UA) Urine Ketones Urine Blood Urine Nitrite Ur Leukocyte Esterase Urine RBC Urine WBC Ur Squamous Epith Cells Urine Bacteria Influenza Type A (PCR) Influenza Type B (PCR) RSV RNA Qual (PCR) SARS-CoV-2 RNA (RT-PCR) 08/26/21 08/26/21 08/26/21 18:32 18:32 19:55 MCV MCH MCHC RDW Plt Count MPV Immature Gran % (Auto) Neut % (Auto) Lymph % (Auto) [place] % (Auto) Eos % (Auto) Baso % (Auto) Lymph # (Auto) [place] # (Auto) Eos # (Auto) Baso # (Auto) Abs Immat Gran (auto) Absolute Neuts (auto) Absolute Nucleated RBC Nucleated RBC % (auto) Smear Tech's Comments PT 13.7 H INR 1.2 H APTT 35.1 Anion Gap Estim Creat Clear Calc Estimated GFR POC Glucose Random Glucose Calcium Total Bilirubin Direct Bilirubin AST ALT Alkaline Phosphatase Total Protein Albumin Lipase Beta HCG, Quant Urine Color YELLOW Urine Appearance HAZY Urine pH 5.5 Ur Specific [place] >= 1.030 H Urine Protein 2+ H Urine Glucose (UA) NEG Urine Ketones 15 Urine Blood 1+ H Urine Nitrite NEG Ur Leukocyte Esterase 3+ H Urine RBC 1-4 Urine WBC 15-29 H Ur Squamous Epith Cells 1+ Urine Bacteria 1+ Influenza Type A (PCR) NEGATIVE Influenza Type B (PCR) NEGATIVE RSV RNA Qual (PCR) NEGATIVE SARS-CoV-2 RNA (RT-PCR) NEGATIVE Imaging Radiologist's Impressions: Impressions Abdomen/Pelvis CT 08/26/21 19:38 IMPRESSION: CT findings most suggestive of pyelonephritis of the left kidney. Correlation with urinary analysis recommended. Fleischner guidelines were followed. Assessment and Plan (1) Pyelonephritis: Status: Acute (2) Sepsis: Status: Acute 35-year-old female with past medical history of hypertension as well as mood disorder presents the hospital with complaints of left lower quadrant abdominal pain found to have pyelonephritis # sepsis - secondary to urinary tract infection/pyelonephritis - started on IV antibiotic - follow culture # pyelonephritis - UA positive - will start IV antibiotic - follow urine culture # hypertension - stable - will continue lisinopril # mood disorder - continue home medications DVT prophylaxis: Lovenox Quality Stroke Does the patient have a stroke diagnosis?: No VTE Prior VTE?: No VTE Risk Level:: Medical - moderate - high VTE Device Contraindication: Treatment Not Indicated VTE Drug Contraindication: N/A - Med Ordered
[2021-08-26] MEDS: Enoxaparin Sodium 40 MG/0.4 ML SYRINGE SUBCUT (22:37)
[2021-08-26] MEDS: oxyCODONE HCl Immed Release 5 MG TABLET PO (22:42)
[2021-08-27] VITALS (9 sets, daily range): BP systolic 113–145; BP diastolic 53–74; PULSE 90–110; RESP 14–20; TEMP 36.3–37.5; O2SAT 97–100
[2021-08-27 06:52] LABS: Hematocrit 36.5 % (37.0-47.0); Mean Corpuscular HGB Conc 32.9 g/dl (31.0-35.0); Mean Corpuscular Hemoglobin 28.8 pg (27.0-33.0); Mean Corpuscular Volume 87.7 fL (80.0-98.0); Mean Platelet Volume 9.2 fL (9.4-12.3); Platelet Count 302 X10*3/uL (160-400); Red Blood Count 4.16 X10*6/uL (4.20-5.50); Red Cell Distribution Width 13.5 % (11.0-16.0)
[2021-08-27 07:34] LABS: Band Neutrophils Percent 21 % (3-5); Lymphocytes Absolute Manual 2.2 X10*3/uL (1.2-4.9); Lymphocytes Percent Manual 11 % (20-40); Monocytes Absolute Manual 1.4 X10*3/uL (0.1-1.2); Monocytes Percent Manual 7 % (2-11); Neutrophils Absolute Manual 16.2 X10*3/uL (2.0-8.3); Neutrophils Percent Manual 60 % (45-73); Promyelocytes Absolute 0.2 X10*3/uL; Promyelocytes Percent 1 %
[2021-08-27 07:35] LABS: RBC Morphology NOTED
[2021-08-27 07:36] LABS: Acanthocytes 1+ (0-2) /OIF; Platelet Estimate NORMAL (NORMAL); Platelet Morphology Comment NORMAL
[2021-08-27 07:38] LABS: Anion Gap 13 (12-20); Blood Urea Nitrogen 9 mg/dL (9-16); Calcium 8.8 mg/dL (8.4-10.2); Carbon Dioxide 23 mmol/L (22-29); Chloride 102 mmol/L (96-108); Creatinine Clr Calc Pharmacy 134.7; Estimated Glomerular Filt Rate > 60; Glucose Random 100 mg/dL (60-115); Potassium 4.2 mmol/L (3.3-5.1); Sodium 134 mmol/L (135-145)
[2021-08-27] MEDS: ondansetron HCL 4 MG/2 ML VIAL IVPUSH (08:04)
[2021-08-27] MEDS: Acetaminophen 325 MG TABLET 650 MG PO ×2 (08:04→15:48)
--- NOTE | 2021-08-27 08:30 | PC.NURSE ---
rn to rn reporot given to kelvin tony aware of plan of care
[2021-08-27] MEDS: lisinopriL 10 MG TABLET PO (08:46)
[2021-08-27] MEDS: clonazePAM 1 MG TABLET PO (08:46)
[2021-08-27] MEDS: Omeprazole 20 MG CAPSULE.DR PO (08:46)
[2021-08-27] MEDS: Amphetamine Mixed Salts 10 MG TABLET PO (08:46)
--- NOTE | 2021-08-27 08:52 | PC.NURSE ---
pt seen by yue ([facility]) pt aware of plan of care.
[2021-08-27 09:20] LABS: Lactic Acid 1.4 mmol/L (0.5-2.0)
[2021-08-27] MEDS: Hydroxychloroquine Sulfate 200 MG TABLET 400 MG PO (09:57)
[2021-08-27] MEDS: Morphine Sulfate 2 MG/ML CARTRIDGE IVPUSH ×2 (09:57→18:34)
[2021-08-27] MEDS: 0.9 % Sodium Chloride Flush 3 ML SYRINGE IVFLUSH ×3 (09:57→20:45)
--- NOTE | 2021-08-27 11:43 | HO.PM.IMPN ---
Subjective Subjective Date of Service: 08/27/21 Interval History: seen and examined this morning follow-up for pyelonephritis reporting left-sided abdominal pain, fever, chills Review of Systems Review of Systems: Yes all other systems are reviewed and are negative Constitutional Constitutional: Reports chills and Reports fever(s) Cardiovascular Cardiovascular: Denies chest pain Respiratory Respiratory: Denies cough Gastrointestinal Gastrointestinal: Reports abdominal pain, Reports nausea and Denies vomiting Physical Exam Vital Signs: Vital Signs: Last Vital Signs Temp 97.8 F 08/27/21 11:12 Pulse 95 08/27/21 11:12 Resp 20 08/27/21 11:12 BP 113/69 08/27/21 11:12 Pulse Ox 99 08/27/21 11:12 BMI result Body Mass Index 43.9 Const: General: comfortable, no acute distress, alert and awake Nutritional Appearance: obese Orientation/consciousness: patient oriented x3 HENMT: Head: Yes normocephalic and Yes atraumatic Eyes: Sclerae: sclerae normal Pupils: Equal, round and reactive pupils present EOM: EOMs intact bilaterally Resp: Effort & Inspection: normal respiratory effort and no respiratory distress Cardio: Rate: regular rate Rhythm: regular rhythm GI: Other: mild tenderness left lower quadrant Inspection: No distended and Yes obesity Palpation (GI): Soft to palpation : General: Yes CVA tenderness on the left Back/Spine/Pelvis: Back: CVA tenderness Neuro: General: patient oriented x3 Cranial nerves: Yes CN's II-XII intact bilaterally, Yes Equal, round and reactive pupils present and Yes Bilaterally intact EOM present Extrem: General: Yes normal to inspection Objective Data Active Medications Acetaminophen (Acetaminophen 325 Mg Tablet) 650 mg PO Q6H PRN PRN Reason: Pain, Mild (Pain Scale 1-3) Last Admin: 08/27/21 08:04 Dose: 650 mg Documented by: JORDAN Amphetamine/Dextroamphetamine (Amphetamine Mixed Salts 10 Mg Tablet) 10 mg PO BID [facility] Last Admin: 08/27/21 08:46 Dose: 10 mg Documented by: JORDAN Amphetamine/Dextroamphetamine (Dextroamphetamine/Amphetamine Xr 10 Mg Cap.Er.24h) 20 mg PO DAILY [facility] Last Admin: 08/27/21 09:51 Dose: Not Given Documented by: CHUYITA Non-Admin Reason: medication vacation, per pt. Clonazepam (Clonazepam 1 Mg Tablet) 1 mg PO DAILY [facility] Last Admin: 08/27/21 08:46 Dose: 1 mg Documented by: JORDAN Docusate Sodium (Docusate Sodium 100 Mg Capsule) 100 mg PO DAILY PRN PRN Reason: Constipation Enoxaparin Sodium (Enoxaparin Sodium 40 Mg/0.4 Ml Syringe) 40 mg SUBCUT Q24H [facility] Last Admin: 08/26/21 22:37 Dose: 40 mg Documented by: DREAD Hydroxychloroquine Sulfate (Hydroxychloroquine Sulfate 200 Mg Tablet) 400 mg PO DAILY [facility] Last Admin: 08/27/21 09:57 Dose: 400 mg Documented by: CHUYITA Ceftriaxone Sodium 1 gm/ (Sodium Chloride) 50 mls @ 100 mls/hr IV Q24H [facility] Lisinopril (Lisinopril 10 Mg Tablet) 10 mg PO DAILY [facility]; Protocol Last Admin: 08/27/21 08:46 Dose: 10 mg Documented by: JORDAN Medroxyprogesterone Acetate (Medroxyprogesterone Acetate 150 Mg Vial) 150 mg IM Q84D [facility] Non-Formulary Medication (Nabumetone) 1 tab PO BID [facility] Omeprazole (Omeprazole 20 Mg Capsule.Dr) 20 mg PO DAILY [facility] Last Admin: 08/27/21 08:46 Dose: 20 mg Documented by: JORDAN Ondansetron HCl (Ondansetron Hcl 4 Mg/2 Ml Vial) 4 mg IVPUSH Q8H PRN PRN Reason: Nausea and Vomiting Last Admin: 08/27/21 08:04 Dose: 4 mg Documented by: JORDAN Oxycodone HCl (Oxycodone Hcl Immed Release 5 Mg Tablet) 5 mg PO Q6H PRN PRN Reason: Pain, Severe (Pain Scale 7-10) Last Admin: 08/26/21 22:42 Dose: 5 mg Documented by: DREAD Paroxetine HCl (Paroxetine Hcl 30 Mg Tablet) 45 mg PO DAILY [facility] Last Admin: 08/27/21 09:52 Dose: Not Given Documented by: CHUYITA Non-Admin Reason: Pt. took her own in ER. Pharmacy Consult (Consult Rx Perform Med Rec) 1 each MISCELLANE ONCE PRN PRN Reason: Consult order Sodium Chloride (0.9 % Sodium Chloride Flush 3 Ml Syringe) 3 ml IVFLUSH QSHIFT [facility] Last Admin: 08/27/21 09:57 Dose: 3 ml Documented by: CHUYITA Labs CBC & Chem 7: 08/27/21 06:24 08/27/21 06:24 Labs: Laboratory Results - last 24 hr 08/26/21 08/26/21 08/26/21 18:03 18:32 18:32 MCV 86.0 MCH 28.8 MCHC 33.5 RDW 13.4 Plt Count 314 MPV 8.9 L Immature Gran % (Auto) 1.4 H Neut % (Auto) 81.0 H Lymph % (Auto) 7.7 L [place] % (Auto) 9.5 Eos % (Auto) 0.1 Baso % (Auto) 0.3 Lymph # (Auto) 1.6 [place] # (Auto) 1.9 H Eos # (Auto) 0.0 Baso # (Auto) 0.1 Abs Immat Gran (auto) 0.28 H Absolute Neuts (auto) 16.4 H Absolute Nucleated RBC 0.000 Nucleated RBC % (auto) 0.0 Neutrophils % (Manual) Band Neutrophils % Lymphocytes % (Manual) Monocytes % (Manual) Promyelocytes % Abs Neuts (Manual) Lymphocytes # (Manual) Monocytes # (Manual) Promyelocytes # Platelet Estimate Plt Morphology Comment RBC Morphology Acanthocytes (Spur) Smear Tech's Comments VERIFIED PT INR APTT Anion Gap 15 Estim Creat Clear Calc 114.8 Estimated GFR > 60 POC Glucose 111 Random Glucose 108 Lactic Acid Calcium 9.9 Total Bilirubin 0.5 Direct Bilirubin 0.3 AST 25 ALT 31 Alkaline Phosphatase 83 Total Protein 7.5 Albumin 4.4 Lipase 12 Beta HCG, Quant < 2 Urine Color Urine Appearance Urine pH Ur Specific [place] Urine Protein Urine Glucose (UA) Urine Ketones Urine Blood Urine Nitrite Ur Leukocyte Esterase Urine RBC Urine WBC Ur Squamous Epith Cells Urine Bacteria Influenza Type A (PCR) Influenza Type B (PCR) RSV RNA Qual (PCR) SARS-CoV-2 RNA (RT-PCR) 08/26/21 08/26/21 08/26/21 18:32 18:32 19:55 MCV MCH MCHC RDW Plt Count MPV Immature Gran % (Auto) Neut % (Auto) Lymph % (Auto) [place] % (Auto) Eos % (Auto) Baso % (Auto) Lymph # (Auto) [place] # (Auto) Eos # (Auto) Baso # (Auto) Abs Immat Gran (auto) Absolute Neuts (auto) Absolute Nucleated RBC Nucleated RBC % (auto) Neutrophils % (Manual) Band Neutrophils % Lymphocytes % (Manual) Monocytes % (Manual) Promyelocytes % Abs Neuts (Manual) Lymphocytes # (Manual) Monocytes # (Manual) Promyelocytes # Platelet Estimate Plt Morphology Comment RBC Morphology Acanthocytes (Spur) Smear Tech's Comments PT 13.7 H INR 1.2 H APTT 35.1 Anion Gap Estim Creat Clear Calc Estimated GFR POC Glucose Random Glucose Lactic Acid Calcium Total Bilirubin Direct Bilirubin AST ALT Alkaline Phosphatase Total Protein Albumin Lipase Beta HCG, Quant Urine Color YELLOW Urine Appearance HAZY Urine pH 5.5 Ur Specific [place] >= 1.030 H Urine Protein 2+ H Urine Glucose (UA) NEG Urine Ketones 15 Urine Blood 1+ H Urine Nitrite NEG Ur Leukocyte Esterase 3+ H Urine RBC 1-4 Urine WBC 15-29 H Ur Squamous Epith Cells 1+ Urine Bacteria 1+ Influenza Type A (PCR) NEGATIVE Influenza Type B (PCR) NEGATIVE RSV RNA Qual (PCR) NEGATIVE SARS-CoV-2 RNA (RT-PCR) NEGATIVE 08/27/21 08/27/21 08/27/21 06:24 06:24 08:54 MCV 87.7 MCH 28.8 MCHC 32.9 RDW 13.5 Plt Count 302 MPV 9.2 L Immature Gran % (Auto) Cancelled Neut % (Auto) Cancelled Lymph % (Auto) Cancelled [place] % (Auto) Cancelled Eos % (Auto) Cancelled Baso % (Auto) Cancelled Lymph # (Auto) Cancelled [place] # (Auto) Cancelled Eos # (Auto) Cancelled Baso # (Auto) Cancelled Abs Immat Gran (auto) Cancelled Absolute Neuts (auto) Cancelled Absolute Nucleated RBC 0.000 Nucleated RBC % (auto) 0.0 Neutrophils % (Manual) 60 Band Neutrophils % 21 H Lymphocytes % (Manual) 11 L Monocytes % (Manual) 7 Promyelocytes % 1 Abs Neuts (Manual) 16.2 H Lymphocytes # (Manual) 2.2 Monocytes # (Manual) 1.4 H Promyelocytes # 0.2 Platelet Estimate NORMAL Plt Morphology Comment NORMAL RBC Morphology NOTED Acanthocytes (Spur) 1+ (0-2) Smear Tech's Comments PT INR APTT Anion Gap 13 Estim Creat Clear Calc 134.7 Estimated GFR > 60 POC Glucose Random Glucose 100 Lactic Acid 1.4 Calcium 8.8 D Total Bilirubin Direct Bilirubin AST ALT Alkaline Phosphatase Total Protein Albumin Lipase Beta HCG, Quant Urine Color Urine Appearance Urine pH Ur Specific [place] Urine Protein Urine Glucose (UA) Urine Ketones Urine Blood Urine Nitrite Ur Leukocyte Esterase Urine RBC Urine WBC Ur Squamous Epith Cells Urine Bacteria Influenza Type A (PCR) Influenza Type B (PCR) RSV RNA Qual (PCR) SARS-CoV-2 RNA (RT-PCR) Assessment and Plan (1) Sepsis: Status: Acute (2) Pyelonephritis: Status: Acute Assessment and Plan: 35-year-old female with past medical history of hypertension as well as mood disorder presents the hospital with complaints of left lower quadrant abdominal pain found to have pyelonephritis sepsis secondary to pyelonephritis no severe features continue IV ceftriaxone started 08/26 UCx prelim growing gram neg destiny Follow BCx, although obtained after receiving abx hypertension - will continue lisinopril mood disorder - continue home medications gerd -continue omeprazole h/o RA hold Plaquenil given current infection DVT prophylaxis: Lovenox attending: dr. chase Quality Stroke Does the patient have a stroke diagnosis?: No VTE Prior VTE?: No VTE Risk Level:: Medical - moderate - high VTE Device Contraindication: Treatment Not Indicated VTE Drug Contraindication: N/A - Med Ordered
--- NOTE | 2021-08-27 14:26 | MHC.CM.PN ---
CM MET WITH PT WHO REPORTS SHE LIVES WITH HER AND IS INDEPENDENT PT DENIES USE OF DME OR HOME/COMMUNITY SERVICES PT DECLINES TO COMPLETE A HCP TODAY PT MOVED TO THE AREA RECENTLY AND HAS A PCP IN [place], CHANTEL SAMPSON AT [facility]. A LIST OF [facility] PCPS WAS PROVIDED CURRENT DC PLAN IS HOME WITH NO SERVICES PT WILL SELF ARRANGE TRANSPORTAITON
[2021-08-27] MEDS: Enoxaparin Sodium 40 MG/0.4 ML SYRINGE SUBCUT (20:44)
[2021-08-27] MEDS: cefTRIAXone sodium 1 GM in 0.9 % Sodium Chloride 50 ML IV (20:44)
[2021-08-28 03:45] VITALS: BP 124/63; PULSE 84; RESP 20; TEMP 37; O2SAT 98
[2021-08-28 06:08] LABS: Hematocrit 34.6 % (37.0-47.0); Hemoglobin 11.3 g/dl (12.0-16.0); Mean Corpuscular HGB Conc 32.7 g/dl (31.0-35.0); Mean Corpuscular Hemoglobin 28.3 pg (27.0-33.0); Mean Corpuscular Volume 86.5 fL (80.0-98.0); Mean Platelet Volume 9.2 fL (9.4-12.3); Platelet Count 305 X10*3/uL (160-400); Red Cell Distribution Width 13.6 % (11.0-16.0); White Blood Count 14.5 X10*3/uL (4.8-10.8)
[2021-08-28 06:29] LABS: Anion Gap 15 (12-20); Blood Urea Nitrogen 11 mg/dL (9-16); Calcium 9.1 mg/dL (8.4-10.2); Carbon Dioxide 25 mmol/L (22-29); Chloride 104 mmol/L (96-108); Creatinine Clr Calc Pharmacy 127.3; Estimated Glomerular Filt Rate > 60; Glucose Random 99 mg/dL (60-115); Potassium 4.7 mmol/L (3.3-5.1); Sodium 139 mmol/L (135-145)
[2021-08-28 06:31] LABS: Band Neutrophils Percent 8 % (3-5); Lymphocytes Absolute Manual 1.9 X10*3/uL (1.2-4.9); Lymphocytes Percent Manual 13 % (20-40); Metamyelocytes Absolute 0.1 X10*3/uL; Metamyelocytes Percent 1 %; Monocytes Absolute Manual 1.2 X10*3/uL (0.1-1.2); Monocytes Percent Manual 8 % (2-11); Myelocytes Absolute 0.1 X10*/uL; Myelocytes Percent 1 %; Neutrophils Absolute Manual 11.2 X10*3/uL (2.0-8.3); Neutrophils Percent Manual 69 % (45-73); Platelet Estimate NORMAL (NORMAL); Platelet Morphology Comment NORMAL; RBC Morphology NORMAL
[2021-08-28 07:49] VITALS: BP 124/74; PULSE 87; RESP 18; TEMP 36.7; O2SAT 98
[2021-08-28] MEDS: PARoxetine HCL 30 MG TABLET 45 MG PO (07:53)
[2021-08-28] MEDS: lisinopriL 10 MG TABLET PO (07:54)
[2021-08-28] MEDS: Omeprazole 20 MG CAPSULE.DR PO (07:54)
[2021-08-28] MEDS: clonazePAM 1 MG TABLET PO (07:54)
[2021-08-28] MEDS: 0.9 % Sodium Chloride Flush 3 ML SYRINGE IVFLUSH (07:54)
--- NOTE | 2021-08-28 09:03 | P.DS_ITS ---
DS: Providers Provider Date of Service: 08/28/21 <ADAM Acosta - Last Filed: 08/28/21 09:24> Date of admission: 08/26/21 21:49 <ADAM Acosta - Last Filed: 08/28/21 09:24> Date of discharge: 08/28/21 <ADAM Acosta - Last Filed: 08/28/21 09:24> Primary care physician: Unknown Physician <ADAM Acosta - Last Filed: 08/28/21 09:24> Attending physician on discharge: Paul Mathews <ADAM Acosta - Last Filed: 08/28/21 09:24> Discharging clinician: Shana Berger <ADAM Acosta - Last Filed: 08/28/21 09:24> DS: Diagnosis Discharge Diagnosis (1) Sepsis: Status: Acute <ADAM Acosta - Last Filed: 08/28/21 09:24> (2) Pyelonephritis: Status: Acute <ADAM Acosta - Last Filed: 08/28/21 09:24> DS: Summary Hospital Course Hospital Course: From H&P on day of admission This is a 35-year-old female with past medical history of hypertension, rheumatoid arthritis, anxiety and depression, ADD, presents to the hospital with complaints of left lower quadrant pain, chills, as well as diaphoresis for the past few days.? Patient feels feverish although reports that she never has a temperature, she has been diaphoretic, she denies any urinary symptoms including no dysuria, frequency or urgency but reports left lower quadrant pain that is radiating to the left flank.? She has no chest pain, no nausea or vomiting, no diarrhea constipation, no lower extremity edema.? No numbness tingling, no weakness and no headache. On arrival to the ED patient had a temperature of 100.7?, heart rate of 117, respiratory rate of 18, blood pressure 121/87, satting 98% on room air Labs are significant for WBC count of 20.3, PT of 13.7, in her home 0.2, sodium of 133, UA that is positive for leukocyte Estrace and WBC, CT abdomen shows? pyelonephritis of the left kidney. Sepsis secondary to acute pyelonephritis Patient was started on IV ceftriaxone. Urine cultures returned positive for pansensitive E coli. She has remained afebrile for over 24 hours and her white count is trending down. Her abdominal pain and flank pain is improving. She has no nausea or vomiting and is tolerating a regular diet. Blood cultures are negative to date. She will be discharged home to complete 14 day course of antibiotics. <ADAM Acosta Last Filed: 08/28/21 09:24> Time Spent with Patient Time attestation: Total time spent providing and/or coordinating discharge services: <ADAM Acosta Last Filed: 08/28/21 09:24> Discharge coordination time: Greater than 30 minutes <ADAM Acosta Last Filed: 08/28/21 09:24> Quality: Stroke Does the patient have a stroke diagnosis?: No <ADAM Acosta Last Filed: 08/28/21 09:24> Physical Exam Vital Signs: Vital Signs: Last Vital Signs Temp 98.0 F 08/28/21 07:49 Pulse 87 08/28/21 07:49 Resp 18 08/28/21 07:49 BP 124/74 08/28/21 07:49 Pulse Ox 98 08/28/21 07:49 BMI result Body Mass Index 43.9 <ADAM Acosta Last Filed: 08/28/21 09:24> Const: General: comfortable, no acute distress, alert and awake <ADAM Acosta Last Filed: 08/28/21 09:24> Nutritional Appearance: obese <ADAM Acosta Last Filed: 08/28/21 09:24> Orientation/consciousness: patient oriented x3 <ADAM Acosta Last Filed: 08/28/21 09:24> HENMT: Head: Yes normocephalic and Yes atraumatic <ADAM Acosta Last Filed: 08/28/21 09:24> Eyes: Sclerae: sclerae normal <ADAM Acosta Last Filed: 08/28/21 09:24> Pupils: Equal, round and reactive pupils present <ADAM Acosta - Last Filed: 08/28/21 09:24> EOM: EOMs intact bilaterally <ADAM Acosta - Last Filed: 08/28/21 09:24> Resp: Effort & Inspection: normal respiratory effort and no respiratory distress <ADAM Acosta - Last Filed: 08/28/21 09:24> Cardio: Rate: regular rate <ADAM Acosta - Last Filed: 08/28/21 09:24> Rhythm: regular rhythm <ADAM Acosta - Last Filed: 08/28/21 09:24> GI: Other: mild tenderness left lower quadrant <ADAM Acosta - Last Filed: 08/28/21 09:24> Inspection: No distended and Yes obesity <ADAM Acosta - Last Filed: 08/28/21 09:24> Palpation (GI): Soft to palpation <ADAM Acosta - Last Filed: 08/28/21 09:24> Neuro: General: patient oriented x3 <ADAM Acosta - Last Filed: 08/28/21 09:24> Cranial nerves: Yes CN's II-XII intact bilaterally, Yes Equal, round and reactive pupils present and Yes Bilaterally intact EOM present <ADAM Acosta - Last Filed: 08/28/21 09:24> Extrem: General: Yes normal to inspection <ADAM Acosta - Last Filed: 08/28/21 09:24> DS: Data Data Completed and Pending Labs on day of discharge: Laboratory Results - last 24 hr 08/27/21 08/28/21 08/28/21 08:54 05:55 05:55 WBC 14.5 H RBC 4.00 L Hgb 11.3 L Hct 34.6 L MCV 86.5 MCH 28.3 MCHC 32.7 RDW 13.6 Plt Count 305 MPV 9.2 L Immature Gran % (Auto) Cancelled Neut % (Auto) Cancelled Lymph % (Auto) Cancelled [place] % (Auto) Cancelled Eos % (Auto) Cancelled Baso % (Auto) Cancelled Lymph # (Auto) Cancelled [place] # (Auto) Cancelled Eos # (Auto) Cancelled Baso # (Auto) Cancelled Abs Immat Gran (auto) Cancelled Absolute Neuts (auto) Cancelled Absolute Nucleated RBC 0.000 Nucleated RBC % (auto) 0.0 Neutrophils % (Manual) 69 Band Neutrophils % 8 H Lymphocytes % (Manual) 13 L Monocytes % (Manual) 8 Metamyelocytes % 1 Myelocytes % 1 Abs Neuts (Manual) 11.2 H Lymphocytes # (Manual) 1.9 Monocytes # (Manual) 1.2 Metamyelocytes # 0.1 Myelocytes # 0.1 Platelet Estimate NORMAL Plt Morphology Comment NORMAL RBC Morphology NORMAL Sodium 139 Potassium 4.7 Chloride 104 Carbon Dioxide 25 Anion Gap 15 BUN 11 Creatinine 0.73 Estim Creat Clear Calc 127.3 Estimated GFR > 60 Random Glucose 99 Lactic Acid 1.4 Calcium 9.1 Preliminary micro results at discharge 08/27/21 08:54 Blood Culture - Preliminary Blood - Venous <ADAM Acosta - Last Filed: 08/28/21 09:24> Discharge Plan Discharge Patient Disposition: Home, Self-Care <ADAM Acosta - Last Filed: 08/28/21 09:24> Discharge Diagnosis: sepsis secondary to acute pyelonephritis <ADAM Acosta - Last Filed: 08/28/21 09:24> sepsis secondary to acute pyelonephritis <Paul Mathews MD - Last Filed: 08/28/21 09:41> Referrals: Physician,Unknown J [Primary Care Provider] - 1 Week <ADAM Acosta - Last Filed: 08/28/21 09:24> Discharge Medications: New cefuroxime axetil 500 mg tablet 500 mg PO BID 13 Days Qty: 26 RF: 0 Continued dextroamphetamine-amphetamine 10 mg tablet 1 tab PO BID RF: 0 dextroamphetamine-amphetamine 20 mg capsule,extended release 24hr 1 cap PO QAM RF: 0 paroxetine HCl 30 mg tablet 45 mg PO DAILY RF: 0 lisinopril 10 mg tablet 1 tab PO DAILY RF: 0 omeprazole 20 mg capsule,delayed release(DR/EC) 1 cap PO DAILY RF: 0 hydroxychloroquine 200 mg tablet 2 tab PO DAILY RF: 0 medroxyprogesterone 150 mg/mL suspension 1 ml IM [id number] RF: 0 clonazepam 1 mg tablet 1 tab PO DAILY MDD anxiety RF: 0 nabumetone 500 mg tablet 1 tab PO BID RF: 0 <ADAM Acosta - Last Filed: 08/28/21 09:24> Discharge Orders: Discharge Order (Routine); Ordered 08/28/21 Ordered By: Shana Berger <ADAM Acosta - Last Filed: 08/28/21 09:24> Diet: advance to usual diet <ADAM Acosta - Last Filed: 08/28/21 09:24> advance to usual diet <Paul Mathews MD - Last Filed: 08/28/21 09:41> Activity on Discharge: As tolerated <ADAM Acosta - Last Filed: 08/28/21 09:24> As tolerated <Paul Mathews MD - Last Filed: 08/28/21 09:41> Stand Alone Forms: Patient Portal Discharge page <ADAM Acosta - Last Filed: 08/28/21 09:24> Care Plan Goals: full recovery from pyelonephritis <ADAM Acosta - Last Filed: 08/28/21 09:24> Health Concerns: sepsis secondary to pyelonephritis <ADAM Acosta - Last Filed: 08/28/21 09:24> Plan of Treatment: complete course of antibiotics <ADAM Acosta - Last Filed: 08/28/21 09:24> Assessment: acute pyelonephritis Attending Attestation: I have personally seen and examined the patient independently (on the date of service as documented by NPP), reviewed the NPP history, exam and?MDM and agree with the assessment and plan as?written <ADAM Acosta - Last Filed: 08/28/21 09:24>
--- NOTE | 2021-08-28 09:11 | MHC.CM.PN ---
PT TO DC HOME TODAY WITH NO SERVICES PT WILL SELF ARRANGE TRANSPORT
== END 2021-08-28 13:15 | disposition home or self-care (01) | DRG 720 ==
LOC: HO.ED 20:45 → HO.EDOVER 21:52 → HO.S3 08-27 07:21
PROVIDERS: Family Medicine; Physician Assistant; Admitting Provider Internal Medicine; Emergency Provider Emergency Medicine; Visit Provider Physician Assistant Medical
DX: A41.9 Sepsis, unspecified organism (principal); I10 Essential (primary) hypertension; F32.A Depression, unspecified; F41.9 Anxiety disorder, unspecified; K21.9 Gastro-esophageal reflux disease without esophagitis; F98.8 Other specified behavioral and emotional disorders with onset usually occurring in childhood and adolescence; N10 Acute pyelonephritis; B96.20 Unspecified Escherichia coli [E. coli] as the cause of diseases classified elsewhere; N39.0 Urinary tract infection, site not specified; M06.9 Rheumatoid arthritis, unspecified; Z20.822 Contact with and (suspected) exposure to COVID-19; Z88.5 Allergy status to narcotic agent; Z79.3 Long term (current) use of hormonal contraceptives; Z79.899 Other long term (current) drug therapy
CPT/HCPCS: 0241U; 36415; 74177; 80048; 80053; 81001; 82248; 82947; 83605; 83690; 84702; 85007; 85025; 85027; 85610; 85730; 87040; 87086; 87088; 87186; 96361; 96374; 96375; 99285; J0696; J1650; J2270; J2405; Q9967